=== PATIENT | male | born 1965 | race Caucasian/White ===

== ENCOUNTER 2018-04-11 11:14 | Observation (INO) ==
--- NOTE | 2018-04-11 11:23 | Emergency Department Note ---
Disposition Clinical Impression: TIA (transient ischemic attack) Disposition: Admitted As Inpatient Condition: Good General Adult HPI - General Chief complaint: ED Neuro Symptoms/Deficit Stated complaint: CP left sided numbness Time Seen by Provider: 04/11/18 11:22 Source: patient Mode of arrival: ambulatory Limitations: no limitations Nursing Notes Reviewed: Yes Vital Signs Reviewed: Yes - History of Present Illness HPI Narrative: Patient with a past Pratik history of TIA as well as hypercholesterol has been not taking his at-home aspirin. Had chest pain yesterday that lasted throughout most of the day. Patient describes a heaviness in his chest. Patient woke up today and was going about his day when he noticed left-sided paresthesias as well as weakness. On exam the patient does not have any facial asymmetry. He has no sensation deficits the face. He has slight decrease in sensation to the left arm. The left leg sensation is symmetric. On strength testing the patient's arm and leg did not fall to the floor. He has 5 out of 5 strength in both the upper and lower extremities bilaterally. He states that his left side feels more weak than his right. He has intact finger to nose and heel to chiang testing. Patient's only objective finding is the left-sided arm decreased in sensation which she describes as slight. I have discussed with his who states that she states that he has not had as much energy and has not been mentally as sharp as he normally is. Patient has answered all questions appropriately and does not have any aphasia or dysphasia. I did discuss with them the fact that the symptoms started at 10:30 he is within the window for TPA. This medication does have person benefits and does require consult with neuro specialist. After discussion of the risks and benefits which include the possibility of getting worse, he has refused both TPA as well as the consult. I did discuss with him the benefits which include TPA being the only medication that we can give to potentially fix the symptoms with the symptoms having the potential to be a permanent disability. He understands and appreciates both the risks and benefits and again wishes to continue further workup but without the need for consideration of TPA. Patient will continue to undergo workup including CT scan of the head as well as with and without contrast. CTA of the neck. Further evaluation of cardiac etiology. Pain Scale: 0 - Related Data Home Medications Medication Instructions Recorded Confirmed Ranitidine HCl [Zantac] 150 mg PO DAILY 07/24/15 07/24/15 Multivitamin 11/28/17 Previous Rx's Medication Instructions Recorded Aspirin 325 mg PO DAILY #30 tablet 07/02/15 Atorvastatin [Lipitor] 40 mg PO HS #30 tablet 07/02/15 Sulfamethoxazole/Trimeth SS 1 each PO BID #14 tablet 11/28/17 [Bactrim SS] Allergies Allergy/AdvReac Type Severity Reaction Status Date / Time No Known Allergies Allergy Verified 11/28/17 15:37 Review of Systems: CONSTITUTIONAL: No weight loss, fever, chills, weakness or fatigue. HEENT: Eyes: No visual changes. Ears, Nose, Throat: No hearing loss, difficulty talking or unable to swallow. SKIN: No rash or itching. CARDIOVASCULAR: Chest pain RESPIRATORY: No shortness of breath, cough or sputum. GASTROINTESTINAL: No anorexia, nausea, vomiting or diarrhea. No abdominal pain or blood. GENITOURINARY: No burning on urination or hematuria. NEUROLOGICAL: Paresthesias to left face, left arm, left leg No headache, dizziness, syncope, paralysis. No change in bowel or bladder control. MUSCULOSKELETAL: No muscle pain, back pain, joint pain or stiffness. Past Medical History - Past Medical History Medical history: Reports: non-contributory Surgical history: Reports: appendectomy Psychiatric history: Reports: no psych history - Social History Smoking Status: Never smoker Smokeless Tobacco Status: No Alcohol use: Reports: occasionally Drug use: Reports: none Physical Exam - General Limitations: no limitations - Head Head exam: atraumatic, normocephalic - Eye Eye exam: Present: normal appearance - ENT ENT exam: normal exam, normal oropharynx - Neck Neck exam: Present: normal inspection - Chest Chest inspection: Present: normal inspection, symmetric chest wall rise - Respiratory Respiratory exam: Present: normal lung sounds bilaterally. Absent: respiratory distress - Cardiovascular Cardiovascular exam: Present: regular rate, normal rhythm - Abdominal Exam Abdominal exam: Present: soft, Non-Tender - Extremities Exam Extremities exam: Present: normal inspection, full ROM. Absent: tenderness - Neurological Exam Neurological exam: Present: alert, oriented X3 - Expanded Neurological Exam Patient oriented to: Present: person, place, time Speech: Present: fluid speech Cranial nerves: EOM function (II, III, IV, ): Normal, facial sensation (V): Normal, facial palsy (VII): Normal, gag reflex (IX): Normal, spinal accessory function (XI): Normal, tongue deviation (XII): Normal Cerebellar function: finger to nose: Normal, heel to chiang: Normal Cerebellar function: normal gait Motor strength - LUE: 5/5 Motor strength - RUE: 5/5 Motor strength - LLE: 5/5 Motor strength - RLE: 5/5 Sensory exam upper extremity: light touch: Abnormal Left Sensory exam lower extremity: light touch: Normal Spinal cord function: Present: intact bulbocavernosus reflex Coma Scale Eye Opening: Spontaneous Coma Scale Motor Response: Obeys Commands Coma Scale Verbal Response: Oriented Coma Scale Total: 15 - Psychiatric Psychiatric exam: Present: normal affect, normal mood - Skin Skin exam: Present: warm, dry, intact Course - Reevaluation(s) Reevaluation #1: Patient's symptoms completely resolved. Patient has been educated about the need for further workup for evaluation of risk factors for potential stroke. Patient is agreeable to stay for further evaluation. - Consultations Consultation #1: Discussed with hospitalist. Patient except for admission. Vital Signs Temperature 98.9 F 04/11/18 11:17 Pulse Rate 77 04/11/18 11:17 Respiratory Rate 16 04/11/18 11:17 Blood Pressure 157/96 04/11/18 11:17 O2 Sat by Pulse Oximetry 96 04/11/18 11:17 Temperature 98.9 F 04/11/18 11:25 Pulse Rate 71 04/11/18 13:58 Respiratory Rate 16 04/11/18 13:58 Blood Pressure 138/91 04/11/18 13:58 O2 Sat by Pulse Oximetry 97 04/11/18 13:58 Oxygen Delivery Oxygen Delivery Room Air Medical Decision Making - Lab Data Result diagrams: 04/11/18 11:34 04/11/18 11:34 Lab Results 04/11/18 04/11/18 04/11/18 Range/Units 11:24 11:34 11:34 WBC 6.8 (4.3-11.1) K/mcL RBC 5.19 (4.19-5.50) M/mcL Hgb 16.0 (12.9-16.9) g/dL Hct 45.7 (37.5-50.1) % MCV 88.1 (83.0-100.0) fL MCH 30.8 (28.0-33.3) pg MCHC 35.0 (31.6-35.5) g/dL RDW 12.2 (11.5-14.5) % Plt Count 145 (140-400) K/mcL MPV 12.0 (9.4-12.4) fL Immature Gran % 0.4 (0-4) % Seg Neutrophils % 64.3 % Lymphocytes % 22.9 % Monocytes % 7.7 % Eosinophils % 3.7 % Basophils % 1.0 % Neutrophils # 4.4 (1.6-8.9) K/mcL Lymphocytes # 1.6 (0.6-4.6) K/mcL Monocytes # 0.5 (0.0-1.3) K/mcL Eosinophils # 0.3 (0.0-0.6) K/mcL Basophils # 0.1 (0.0-0.2) K/mcL Immature Plt Fraction 13.9 H (1.1-6.1) % PT 11.4 (9.4-12.1) Seconds INR 1.0 APTT 31.5 (26.0-36.0) Seconds Sodium (136-145) mEq/L Potassium (3.5-5.1) mEq/L Chloride (98-107) mEq/L Carbon Dioxide (23-29) mEq/L BUN (6-20) mg/dL Creatinine (0.70-1.30) mg/dL Est GFR ( Amer) (> 60) Est GFR (Non-Af Amer) (> 60) BUN/Creatinine Ratio (6-26) Glucose (70-105) mg/dL POC Glucose 118 H (70-99) mg/dL Calculated Osmolality (280-300) Calcium (8.6-10.3) mg/dL Troponin I (< 0.04) ng/mL 04/11/18 Range/Units 11:34 WBC (4.3-11.1) K/mcL RBC (4.19-5.50) M/mcL Hgb (12.9-16.9) g/dL Hct (37.5-50.1) % MCV (83.0-100.0) fL MCH (28.0-33.3) pg MCHC (31.6-35.5) g/dL RDW (11.5-14.5) % Plt Count (140-400) K/mcL MPV (9.4-12.4) fL Immature Gran % (0-4) % Seg Neutrophils % % Lymphocytes % % Monocytes % % Eosinophils % % Basophils % % Neutrophils # (1.6-8.9) K/mcL Lymphocytes # (0.6-4.6) K/mcL Monocytes # (0.0-1.3) K/mcL Eosinophils # (0.0-0.6) K/mcL Basophils # (0.0-0.2) K/mcL Immature Plt Fraction (1.1-6.1) % PT (9.4-12.1) Seconds INR APTT (26.0-36.0) Seconds Sodium 138 (136-145) mEq/L Potassium 3.8 (3.5-5.1) mEq/L Chloride 106 (98-107) mEq/L Carbon Dioxide 22 L (23-29) mEq/L BUN 16 (6-20) mg/dL Creatinine 1.00 (0.70-1.30) mg/dL Est GFR ( Amer) > 60 (> 60) Est GFR (Non-Af Amer) > 60 (> 60) BUN/Creatinine Ratio 16 (6-26) Glucose 123 H (70-105) mg/dL POC Glucose (70-99) mg/dL Calculated Osmolality 289 (280-300) Calcium 9.2 (8.6-10.3) mg/dL Troponin I < 0.03 (< 0.04) ng/mL
[2018-04-11] MEDS ORDERED: 0.9 % Sodium Chloride 1,000 ML IVC ONE (11:36)
[2018-04-11] MEDS ORDERED: Isovue-370 500 ML INFUS..BTL IV ONE (11:36)
[2018-04-11 12:07] LABS: Prothrombin Time 11.4 Seconds (9.4-12.1)
[2018-04-11 12:09] LABS: Activated Partial Thrombo Time 31.5 Seconds (26.0-36.0)
[2018-04-11 12:14] LABS: BUN/Creatinine Ratio 16 (6-26); Blood Urea Nitrogen 16 mg/dL (6-20); Calcium 9.2 mg/dL (8.6-10.3); Carbon Dioxide 22 mEq/L (23-29); Chloride 106 mEq/L (98-107); Glucose 123 mg/dL (70-105); Osmolality,Calculated 289 (280-300); Potassium 3.8 mEq/L (3.5-5.1); Sodium 138 mEq/L (136-145); Troponin I < 0.03 ng/mL (< 0.04); eGFR For Non-African Americans > 60 (> 60)
[2018-04-11 12:24] LABS: Basophils # 0.1 K/mcL (0.0-0.2); Eosinophils # 0.3 K/mcL (0.0-0.6); Eosinophils % 3.7 %; Hematocrit 45.7 % (37.5-50.1); Immature Granulocytes % 0.4 % (0-4); Immature Platelets 13.9 % (1.1-6.1); Lymphocytes # 1.6 K/mcL (0.6-4.6); Lymphocytes % 22.9 %; Mean Corpuscular Hemoglobin 30.8 pg (28.0-33.3); Mean Corpuscular Volume 88.1 fL (83.0-100.0); Monocytes # 0.5 K/mcL (0.0-1.3); Monocytes % 7.7 %; Neutrophils # 4.4 K/mcL (1.6-8.9); Platelet Count 145 K/mcL (140-400); Red Blood Count 5.19 M/mcL (4.19-5.50); Red Cell Distribution Width 12.2 % (11.5-14.5); Segmented Neutrophils % 64.3 %
[2018-04-11] MEDS ORDERED: Naloxone 0.4 MG/ML INJ IVP PRN (18:07)
[2018-04-11] MEDS: Famotidine 20 MG TABLET PO SCH (20:04)
--- NOTE | 2018-04-11 20:12 | Internal Med History&Physical ---
Date of Encounter: 04/11/18 Time of Encounter: 19:00 Internal Medicine - H&P: HPI Chief complaint: Left-sided numbness/tingling Admitted From: Home Plans for Post Hospital Care: Home History of present illness: This is a 56-year-old male. It was today morning around 10:30 AM, when he suddenly developed "numbness and weakness" on left side of his body, including his left face and left extremities. He did not have any problems to operate with his hands. He did not have any problems with walking. Half an hour later he was on his way to our emergency room. The symptoms subsided about 2 hours from the beginning. I saw him after admitting him to the hospital floor. He did not report to me any symptoms at the time of examination. It was in 2014 when he developed numbness and tingling in both legs. Associated with some tunnel vision. He had an evaluation for stroke at that time. The patient does have low back pain at times. He denies neck pain. It was yesterday afternoon when he experienced central anterior chest painsubsided a couple hours later after taking 1 tablet of ranitidine. He used to have this type of pain before on multiple occasions. Somebody diagnosed him with GERD in the past. He has not noticed any exertional chest pain or decreased exercise tolerance recently. He is treated for GERD and hyperlipidemia. REVIEW OF SYSTEMS: All 14 organ systems were reviewed by me with the patient. Positive and pertinent negative findings are listed above. The rest of organ systems is negative. PHYSICAL EXAM: Skin: Free of rash and discoloration. Eyes: Sclera is white. There is no discharge from eyes. ENMT: Oral/pharyngeal mucosa is normal in appearance. There is no discharge from nose or ears. Respiratory: Normal breath sounds with no crackles and wheezes bilaterally. CV: Heart is regular with no gallop or murmur. GI: Abdomen is flat and soft with no palpable mass or visceromegaly. : There is no tenderness in patient's flanks bilaterally. Neuro exam: He has good strength in upper and lower extremities. He has normal eye movements. Psychiatric: He has normal affect. His thought process is appropriate to the situation. A/P: Left-sided numbness/tingling. Could be secondary to TIA. Could be secondary to cervical radiculopathy. CT of the brain and CT angio of brain and neck are negative. The patient was offered TPA and neurologic consult in the emergency room. He refused. I will keep him on daily aspirin and Lipitor. I am ordering echocardiogram, EKG and telemetry. GERD. The chest pain he experienced yesterday is not typical for coronary artery disease. I will keep him on the ranitidine at 150 mg by mouth twice a day. Hyperlipidemia. I will continue Lipitor at 40 mg by mouth daily. Past Med Surg Social Fam HX - Past Medical History Medical history: GERD, hyperlipidemia Additional medical history: acid reflux Psychiatric history: no psych history - Past Surgical History Surgical History: appendectomy Additional surgical history: First hep A vacc - Social History Smoking Status: Never smoker Smokeless Tobacco Status: Yes Alcohol use: occasionally Drug use: none - Family History Father Hx Family Endocrine Disorder: Yes (DM) Mother Hx Family Endocrine Disorder: Yes (Thyriod) Internal Medicine - H&P: Meds Atorvastatin [Lipitor] 40 mg PO HS #30 tablet 07/02/15 [Rx] Ranitidine HCl [Acid Pageant Director] 150 mg PO DAILY 04/11/18 [History] 3 Allergy/AdvReac Type Severity Reaction Status Date / Time No Known Allergies Allergy Verified 04/11/18 15:15 - Constitutional Vitals: Temp Pulse Resp BP Pulse Ox 98.8 F 71 18 136/79 97 04/11/18 18:36 04/11/18 18:36 04/11/18 18:36 04/11/18 18:36 04/11/18 18:36 General appearance: Present: A&O X 3, no acute distress, answers questions appropriately Exam: xx Internal Med - H&P Results - Labs CBC & Chem 7: 04/11/18 11:34 04/11/18 11:34 - Assessment and plan (1) TIA (transient ischemic attack) Current Visit: Yes Status: Acute Qualifiers: Transient cerebral ischemia type: unspecified Qualified Code(s): G45.9 - Transient cerebral ischemic attack, unspecified (2) GERD (gastroesophageal reflux disease) Current Visit: Yes Status: Chronic Qualifiers: Esophagitis presence: esophagitis presence not specified Qualified Code(s) : K21.9 - Gastro-esophageal reflux disease without esophagitis (3) Hyperlipidemia Current Visit: No Status: Chronic Qualifiers: Hyperlipidemia type: unspecified Qualified Code(s): E78.5 - Hyperlipidemia , unspecified - Time Spent With Patient Total time spent is greater than 50% in coordination of care (as documented) at patient's floor/unit and/or counseling patient: Greater than 35 minutes - VTE Reasons for not Prescribing Prophylaxis: Treatment not Indicated - Low risk for VTE Deep Vein Thrombosis/Pulmonary Embolism Present on Admission: No
[2018-04-12] MEDS: Famotidine 20 MG TABLET PO SCH (09:26)
--- NOTE | 2018-04-12 12:21 | Neurology - Consult Note ---
<Rakesh Flores P - Last Filed: 04/12/18 16:15> Date of Encounter: 04/12/18 Time of Encounter: 11:30 Assessment and Plan (1) CVA (cerebral vascular accident) Current Visit: No Status: Acute This patient has left sided weakness lasted for 2-3 hours He is 52 years old with borderline HTN and hyperlipidemia, past smoker, family history of stroke positive Symptoms has been resolved now CTA neck/ head : less than 50% stenosis ICA MRI head :No acute intracranial abnormality. Minimal chronic microvascular disease. Echo LVEF 60-65%. ,Normal LV chamber size, wall thickness and function. Qualifiers: CVA mechanism: stenosis Precerebral and cerebral artery: unspecified cerebral artery Qualified Code(s): I63.50 - Cerebral infarction due to unspecified occlusion or stenosis of unspecified cerebral artery History of Present Illness Chief complaint: left sided weakness for a couple of hours/TIA HPI: Mr. Booth is a 52 year old male admitted to [facility] via ED for sudden onset of left sided weakness and numbness for about 2-3 hours. He states that he had numbness in face , numbness in left upper and lower limbs and weakness in left hand and left leg . He reported to ED within one and half hour of symptoms and he still had weakness and recovered after 2-3 hours .He has had similar episode in 2015 , but complete work up for Stroke was negative . He is 52 years old , past smoker, no h/o diabetes ,hyperlipidemia, borderline high blood pressure , he has family history of stroke . The day before he had weakness in his left limb , he has had mild chest pain. During my visit today , he was lying comfortably in his bed, he no longer has any symptoms and new concerns . He stated that he recovered from his weakness. He denies any vertigo, palpitation, syncope, dizziness, lightheadedness, fall injury/ head trauma , seizure like activity, tick bites, bowel and bladder incontinence He is not on aspirin and taking 40 mg lipitor for hyperlipidemia. . Vitals: Tem 98.3F , BP 128/82, sat 97%,WBC 6.8 , Na 138, K 3.8BU 16 , glucose 123,Calcium 9.2 CT angio-neck:Mild, less than 50%, stenosis of the internal carotid arteries No intracranial flow-limiting stenosis. MRI head :No acute intracranial abnormality. Minimal chronic microvascular disease. Echo LVEF 60-65%. ,Normal LV chamber size, wall thickness and function. Past Med Surg Social Fam HX - Past Medical History Medical history: GERD, hyperlipidemia Additional medical history: acid reflux Psychiatric history: no psych history - Past Surgical History Surgical History: appendectomy Additional surgical history: First hep A vacc - Social History Smoking Status: Never smoker Smokeless Tobacco Status: Yes Alcohol use: occasionally Drug use: none - Family History Father Hx Family Endocrine Disorder: Yes (DM) Mother Hx Family Endocrine Disorder: Yes (Thyriod) Medications and Allergies Atorvastatin [Lipitor] 40 mg PO HS #30 tablet 07/02/15 [Rx] Ranitidine HCl [Acid Ribbon Weaver] 150 mg PO DAILY 04/11/18 [History] 3 Allergy/AdvReac Type Severity Reaction Status Date / Time No Known Allergies Allergy Verified 04/11/18 15:15 All Systems: The remainder of the systems were reviewed and are negative Physical Examination - Vital Signs Vital Signs: Initial Vital Signs Temp Pulse Resp BP Pulse Ox 98.9 F 77 16 157/96 96 04/11/18 11:17 04/11/18 11:17 04/11/18 11:17 04/11/18 11:17 04/11/18 11:17 - Constitutional General appearance: comfortable - Neurologic Sensorimotor examination: intact Detailed motor examination: grossly full strength in all extremities Motor examination - right side: 5/5: deltoids, biceps, triceps, wrist flexion, wrist extension, files supervisor, hip flexors, tibialis Anterior, quadriceps, toe extension (EHL), plantarflexion Motor examination - left side: 5/5: deltoids, biceps, triceps, wrist flexion, wrist extension, hip flexors, files supervisor, quadriceps, tibialis Anterior, toe extension (EHL), plantarflexion Detailed sensory examination: intact Reflex and gait examination: normal gait Reflexes: Biceps: 2+, Triceps: 2+, Brachioradialis: 2+, Patella: 2+, Achilles: 2 + Mental Status Examination: awake, alert, oriented to person, oriented to place, oriented to time, follows commands appropriately, answers questions appropriately, no agnosia, no aphasia Cerebellar examination: no dysmetria, performs finger to nose and heel to chiang symmetrically without ataxia, no gait ataxia Results - Laboratory Findings CBC and BMP: 04/11/18 11:34 04/11/18 11:34 Abnormal lab findings: Abnormal lab results Immature Plt Fraction 13.9 % (1.1-6.1) H 04/11/18 11:34 Carbon Dioxide 22 mEq/L (23-29) L 04/11/18 11:34 Glucose 123 mg/dL (70-105) H 04/11/18 11:34 POC Glucose 118 mg/dL (70-99) H 04/11/18 11:24 Consult Discharge Plan - Plan Referrals: Yvette Garnica CNP [Primary Care Provider] - <Pratik Garces - Last Filed: 04/12/18 16:40> Date of Encounter: 04/12/18 Time of Encounter: 16:33 Assessment and Plan (1) Symptoms of cerebrovascular accident (CVA) Current Visit: No Status: Acute This patient has presented on 2 different occasions with symptoms of cerebral ischemia localizing to the right cerebral hemisphere however a workup has not identified evidence of cerebral ischemia or any stenosis of the vasculature perfusing the right cerebral hemisphere. A CTA scans of the head and neck were unrevealing. MRI scan of the brain completed today as well as a study completed back in November were both normal and unrevealing. I see no evidence of cerebral ischemia involving the right cerebral hemisphere. Echocardiogram today was negative as well. I would recommend for completeness moving on to obtain a VICK, as well as a hypercoagulable workup. I would recommend discharging him home on aspirin 81 mg daily. His neurologic examination is now completely normal office deficits in symptoms have resolved. I will reevaluate him at your request. History of Present Illness HPI: The chart was reviewed, the patient was seen and examined independently. Case was discussed with the resident. I agree with his assessment of the history of present illness as above. All Systems: The remainder of the systems were reviewed and are negative Review of Systems: The balance of the systems review is negative. Physical Examination - Vital Signs Vital Signs: Initial Vital Signs Temp Pulse Resp BP Pulse Ox 98.9 F 77 16 157/96 96 04/11/18 11:17 04/11/18 11:17 04/11/18 11:17 04/11/18 11:17 04/11/18 11:17 - Neurologic Detailed motor examination: full strength in all major muscle groups Motor examination - right side: 5/5: deltoids, biceps, triceps, wrist flexion, wrist extension, files supervisor, hip flexors, tibialis Anterior, quadriceps, toe extension (EHL), plantarflexion Motor examination - left side: 11/28: deltoids, biceps, triceps, wrist flexion, wrist extension, hip flexors, files supervisor, quadriceps, tibialis Anterior, toe extension (EHL), plantarflexion Mental Status Examination: awake, alert, oriented to person, oriented to place, oriented to time, follows commands appropriately, answers questions appropriately, no agnosia, no aphasia, no aproxia Cranial nerve examination: PERRL, EOMI, visual palomino intact, corneal reflexes brisk symmetrically, sensory to face intact, mastication intact, no facial asymmetry is present, no dysarthria, hearing is intact symmetrically, soft palate elevates bilaterally upon phonation, gag reflex intact, flexes SCM and trapezius muscles symmetrically with full power, tongue protrudes midline, no atrophy or facial fasiculations present Cerebellar examination: no dysmetria, performs finger to nose and heel to chiang symmetrically without ataxia, no gait ataxia, no truncal ataxia, no difficulty with rapid alternating movements Results - Laboratory Findings CBC and BMP: 04/11/18 11:34 04/11/18 11:34 Abnormal lab findings: Abnormal lab results Immature Plt Fraction 13.9 % (1.1-6.1) H 04/11/18 11:34 Carbon Dioxide 22 mEq/L (23-29) L 04/11/18 11:34 Glucose 123 mg/dL (70-105) H 04/11/18 11:34 POC Glucose 118 mg/dL (70-99) H 04/11/18 11:24
[2018-04-12 15:22] VITALS: BP 134/79
--- NOTE | 2018-04-12 16:57 | Discharge Summary ---
Date of Encounter: 04/12/18 Time of Encounter: 16:51 - Discharge Diagnosis (1) TIA (transient ischemic attack) Priority: Primary Status: Acute Qualifiers: Transient cerebral ischemia type: unspecified Qualified Code(s): G45.9 - Transient cerebral ischemic attack, unspecified (2) GERD (gastroesophageal reflux disease) Priority: Secondary Status: Chronic Qualifiers: Esophagitis presence: esophagitis presence not specified Qualified Code(s) : K21.9 - Gastro-esophageal reflux disease without esophagitis (3) Hyperlipidemia Priority: Secondary Status: Chronic Qualifiers: Hyperlipidemia type: unspecified Qualified Code(s): E78.5 - Hyperlipidemia , unspecified Hospital course: Mr. Booth is a 52 year old male. We admitted hi, after he experienced numbness and tingling of left face and left extremities. It started about 1/2 hour before coming to ED; subsided in ER. Lasted for about [address] of brain , CTA of brain/neck, echocardiogram and telemetry were normal. MRI of brain was normal, too. Neurology consult was obtained -- the patient could have had TIA. The patient had an episode of central anterior chest pain on the day preceeding the admission. Resting and lastin for about 1 hour (no other sx-s). He had similar chest pain on a couple occasions before. No exertional cp or worsening of exercise tolerance recently. Has had dx of GERD. We found him having nl troponin/ecg. He was asymptomatic during this hospitalization. Condition at discharge: Feels good. No chest pain/dyspnea. Lungs: nl BS; no cr/wh. Heart: reg; no g/m Abd: soft/not tender; no palpable mass/visceromegaly. Outpatient stress test. Discharge discussed with: patient, family - Time Spent with Patient Total time spent providing and/or coordinating discharge services: Greater than 30 minutes (40 minutes) - Discharge Medications Prescriptions: Aspirin Enteric Coated [Aspirin EC] 325 mg PO DAILY #30 tablet. Ranitidine HCl [Acid Beef Farmer] 150 mg PO DAILY 30 Days #60 tablet Home Medications: Atorvastatin [Lipitor] 40 mg PO HS #30 tablet 07/02/15 [Rx] Aspirin Enteric Coated [Aspirin EC] 325 mg PO DAILY #30 tablet. 04/12/18 [Rx] Ranitidine HCl [Acid Beef Farmer] 150 mg PO DAILY 30 Days #60 tablet 04/12/18 [Rx] Allergies/Adverse Reactions: 3 Allergy/AdvReac Type Severity Reaction Status Date / Time No Known Allergies Allergy Verified 04/11/18 15:15 Date of admission: 04/11/18 16:06 Primary care physician: Yvette Garnica CNP Consults: 04/12/18 10:27 Consult to Neurology [CONS] Routine Consulting Provider: [facility] Reason for Consult: Sustected TIA Time Notified: 10:25 Call Completed: Yes Discharging clinician: Jacob Mckeon Anticipated date of discharge: 04/12/18 - Constitutional Vitals: Temp Pulse Resp BP Pulse Ox 97.9 F 71 17 134/79 96 04/12/18 15:19 04/12/18 15:19 04/12/18 15:19 04/12/18 15:19 04/12/18 15:19 General appearance: Present: A&O X 3, no acute distress, answers questions appropriately Exam: xx - Patient Status Disposition: Home, Self-Care Condition: Good Functional capacity at discharge: independent ambulation Overall status at discharge: patient is back to baseline - Discharge Instructions Instructions: Ranitidine (By mouth), Aspirin (By mouth), Transient Ischemic Attack (DC), Transient Ischemic Attack (GEN) Follow Up With: Yvette Garnica CNP [Primary Care Provider] - Forms: ED Satisfaction Letter Additional Instructions: The patient needs cardiolyte stress test scheduled -- OUTPATIENT (Dx: Recurrent chest pain) - Diet and Activity Activity: resume usual activities as tolerated Diet: low fat, low cholesterol - VTE Reasons for not Prescribing Prophylaxis: Treatment not Indicated - Low risk for VTE Deep Vein Thrombosis/Pulmonary Embolism Present on Admission: No
--- NOTE | 2018-04-13 17:50 | Electrocardiograph Report ---
[place] [id number] Test Date: 2018-04-11 Pat Name: Phillip Booth Department: EXAM8 Room: 3B34 Gender: Chief Psychologist: : 1965 Requested By: Jacob Mckeon Order Number: [id number] Reading MD: Lauren Sandoval Measurements Intervals [place] Rate: 85 P: 64 NH: 149 QRS: -2 QRSD: 109 T: 64 QT: 369 QTc: 439 Interpretive Statements Sinus rhythm Incomplete RBBB and LAFB Electronically Signed On 04-13-2018 17:48:54 EDT by Lauren Sandoval
== END 2018-04-12 17:24 | disposition home or self-care (01) ==
LOC: EMEROOARM 11:14 → 3BNU 11:14
PROVIDERS: ADMIT Student in an Organized Health Care Education/Training Program; ATTEND Student in an Organized Health Care Education/Training Program